=== PATIENT | male | born 1985 | race Caucasian/White ===

== ENCOUNTER 2017-05-17 00:43 | Emergency (ER) | payer SELFPAY ==
[2017-05-17] MEDS ORDERED: Ketorolac Tromethamine 30 MG/ML VIAL ONE (01:09)
[2017-05-17] MEDS ORDERED: Lidocaine 1% w/Epinephrine 1:100K 30 ML VIAL ONE (01:09)
[2017-05-17 01:23] LABS: #Basophils 0.1 thou/uL (0.0-0.2); #Eosinphils 0.3 thou/uL (0.0-0.7); #Lymphocytes 3.4 thou/uL (1.20-3.40); #Monocytes 0.5 thou/uL (0.11-0.59); #Neutrophils 5.2 thou/uL (1.40-6.50); %Basophils 1.1 % (0.0-1.0); %Eosinophils 3.1 % (0.0-10.0); %Monocytes 5.5 % (0.0-10.0); %Neutrophils 54.3 % (42.0-75.0); Hemoglobin 15.7 g/dL (14.0-18.0); Mean Corpuscular HGB CONC 35.7 g/dL (32.0-36.0); Mean Corpuscular Hemoglobin 33.2 pg (27.0-31.0); Mean Corpuscular Volume 92.9 fl (80.0-94.0); Mean Platelet Volume 10.9 fL (7.4-10.4); Platelet Count 202 thou/uL (130-400); RBC Distribution Width 11.9 % (11.5-14.5); Red Blood Cell (RBC) Count 4.73 mill/uL (4.70-6.10); White Blood Cell (WBC) Count 9.6 thou/uL (4.8-10.8)
[2017-05-17 02:00] LABS: Alcohol 138 mg/dL (Less than 10); Anion Gap 16 mmol/L (10-20); BUN (Urea Nitrogen) 11 mg/dL (8.9-20.6); Calc. Creatinine Clearance 0 mL/min (70-130); Carbon Dioxide 19 mmol/L (22-29); Chloride 108 mmol/L (98-107); Estimated GFR-MDRD Greater than 90; Glucose 103 mg/dL (70-105); Potassium 3.7 mmol/L (3.5-5.1); Sodium 139 mmol/L (136-145)
--- NOTE | 2017-05-17 07:28 | RAD ---
RIGHT HAND 3 VIEWS: DATE: 05/17/17. FINDINGS: Opaque pellets are seen in the superficial soft tissues on the medial side of the hand, just medial t o the 5th metacarpal head. All underlying bones appear intact with no sign of fracture. IMPRESSION: Foreign body as noted. POS: HOME
== END 2017-05-17 02:15 | disposition home or self-care (01) ==
LOC: BURERS 00:43
DX: S61.441A Puncture wound with foreign body of right hand, initial encounter (principal); F17.210 Nicotine dependence, cigarettes, uncomplicated; W34.010A Accidental discharge of airgun, initial encounter; Y93.9 Activity, unspecified
CPT/HCPCS: 10120; 36415; 80307; 85025; 96374; J1885; J2001

== ENCOUNTER 2017-05-22 14:33 | Emergency (ER) | payer SELFPAY ==
[2017-05-22] MEDS ORDERED: Lidocaine 1% 20 ML MDV ONE (14:50)
== END 2017-05-22 15:06 | disposition home or self-care (01) ==
LOC: BURERS 14:33
DX: L02.511 Cutaneous abscess of right hand (principal); F17.210 Nicotine dependence, cigarettes, uncomplicated; Z79.899 Other long term (current) drug therapy
CPT/HCPCS: 26010; J2001

== ENCOUNTER 2017-06-20 14:04 | Emergency (ER) | payer SELFPAY ==
[2017-06-20] MEDS ORDERED: Ondansetron ODT 4 MG TAB ONE (14:22)
== END 2017-06-20 14:30 | disposition home or self-care (01) ==
LOC: BURERS 14:04
DX: B34.9 Viral infection, unspecified (principal); F17.210 Nicotine dependence, cigarettes, uncomplicated
CPT/HCPCS: 99406; Q0162